=== PATIENT | male | born 1980 | race Caucasian/White ===

== ENCOUNTER 2019-02-01 09:48 | Emergency (ER) | payer MEDICARE, MEDICAID ==
[~2019-02-01] VITALS: Ht 182.9 cm; Wt 93.0 kg
[2019-02-01] MEDS ORDERED: VARE1TAB21 PO (10:13)
[2019-02-01] MEDS ORDERED: DOXY100T2 PO (10:13)
[2019-02-01] MEDS ORDERED: GABA-531 PO (10:13)
[2019-02-01] MEDS ORDERED: ARIP300S IM (10:13)
[2019-02-01] MEDS ORDERED: TRAZ-213 PO (10:13)
[2019-02-01] MEDS ORDERED: DIVA-75 PO (10:13)
[2019-02-01] MEDS ORDERED: HYDR50SY PO (10:13)
[2019-02-01] MEDS ORDERED: QUET300T2 PO (10:13)
[2019-02-01] MEDS ORDERED: CLON-457 PO (10:13)
[2019-02-01] MEDS ORDERED: DULO60CA64 PO (10:13)
[2019-02-01] MEDS ORDERED: PRAZ2CAP2 PO (10:13)
[2019-02-01] MEDS ORDERED: MIRT15TA6 PO (10:13)
[2019-02-01] MEDS ORDERED: TERB250T51 PO (10:13)
[2019-02-01] MEDS ORDERED: CITA40TA11 PO (10:13)
[2019-02-01] MEDS ORDERED: OLANZAPINE 5MG TABLET ODT PO ONE (10:30)
[2019-02-01 10:49] LABS: CLARITY URINE CLEAR (CLEAR); COLOR URINE YELLOW (YELLOW); KETONES URINE NEGATIVE (NEGATIVE); LEUKOCYTE ESTERASE URINE NEGATIVE (NEGATIVE); NITRITE URINE NEGATIVE (NEGATIVE); OCCULT BLOOD URINE NEGATIVE (NEGATIVE); PH URINE 6.5 (4.5-8.0); PROTEIN URINE NEGATIVE (NEGATIVE); SPECIFIC GRAVITY URINE 1.012 (1.005-1.030); UROBILINOGEN URINE 0.2 E.U./dL (0.2-1.0)
[2019-02-01 11:05] LABS: *BARBITURATES SCREEN URINE NEGATIVE (NEGATIVE); METHADONE URINE SCREEN NEGATIVE (NEGATIVE); OPIATES URINE SCREEN NEGATIVE (NEGATIVE); PHENCYCLIDINE URINE SCREEN NEGATIVE (NEGATIVE)
[2019-02-01 11:06] LABS: *AMPHETAMINES SCREEN URINE NEGATIVE (NEGATIVE); *BENZODIAZEPINES SCREEN URINE NEGATIVE (NEGATIVE); *COCAINE SCREEN URINE NEGATIVE (NEGATIVE); CANNABINOID URINE SCREEN PRESUMTIVE POSITIVE (NEGATIVE)
[2019-02-01 11:23] LABS: BASOPHILS % 0.6 % (0.0-2.0); EOSINOPHILS % 0.7 % (0.0-5.0); HEMOGLOBIN. 13.6 g/dL (14.0-18.0); LYMPHOCYTES % 24.4 % (20.0-50.0); MEAN CORPUSCULAR HEMOGLOBIN 30.7 pg (28.0-32.0); MEAN CORPUSCULAR VOLUME 87.9 fL (80.0-94.0); MEAN PLATELET VOLUME 7.9 fl (7.4-10.4); MONOCYTES % 10.2 % (2.0-8.0); NEUTROPHILS % 64.1 % (40.0-76.0); PLATELET 157 x1000/uL (130-400); RED BLOOD CELL COUNT 4.43 mill/uL (4.7-6.1); RED CELL DISTRIBUTION WIDTH 13.8 % (11.6-14.6)
[2019-02-01 11:30] LABS: CHLORIDE 107 mEq/L (98-107)
[2019-02-01 11:36] LABS: ETHANOL BLOOD < 10 mg/dL
[2019-02-02] MEDS ORDERED: TRAZODONE HCL 50MG TABLET PO SCH (21:00)
[2019-02-04] MEDS ORDERED: TRAZODONE HCL 50MG TABLET PO SCH (01:00)
[2019-02-04 01:57] VITALS: BP 141/96
== END 2019-02-04 01:39 ==
LOC: ER 09:48
DX: R45.851 Suicidal ideations (principal); T40.7X1A Poisoning by cannabis (derivatives), accidental (unintentional), initial encounter; Y92.89 Other specified places as the place of occurrence of the external cause; F41.9 Anxiety disorder, unspecified; F32.9 Major depressive disorder, single episode, unspecified; F43.10 Post-traumatic stress disorder, unspecified; Z79.899 Other long term (current) drug therapy; Z88.0 Allergy status to penicillin
CPT/HCPCS: 36415; 80305; 80307; 80320; 80329; 81003; 99284; 99285; G0480